=== PATIENT | female | born 1960 | race Caucasian/White ===

== ENCOUNTER 2022-06-08 15:17 | Emergency (ER) | payer OTHER, BC ==
[2022-06-08 15:41] VITALS: BP 152/99
[2022-06-08] MEDS ORDERED: Bacitracin Oint 1 GM U/D Packet TOP ONE (15:53)
[2022-06-08 16:03] VITALS: PULSE 84
== END 2022-06-08 16:10 | disposition home or self-care (01) ==
LOC: JP.ED 15:17
DX: S81.852A Open bite, left lower leg, initial encounter (principal); Z79.82 Long term (current) use of aspirin; W54.0XXA Bitten by dog, initial encounter
CPT/HCPCS: 99283

== ENCOUNTER 2023-01-14 07:01 | Day surgery (SDC) | payer BC, OTHER ==
[2023-01-14] MEDS ORDERED: Lactated Ringers 1,000 ML IV SCH (07:30)
[2023-01-14] MEDS ORDERED: Propofol 200 MG/20 ML SDV ONE (07:40)
[2023-01-14] MEDS ORDERED: Midazolam 1 MG/ML 2 ML SDV ONE (07:41)
[2023-01-14] MEDS ORDERED: fentaNYL 50 MCG/ML SDV ONE (07:41)
[2023-01-14 09:38] VITALS: BP 131/86; PULSE 78
== END 2023-01-14 09:40 | disposition home or self-care (01) ==
LOC: JP.SDS 07:01
PROVIDERS: ATTEND Student in an Organized Health Care Education/Training Program
DX: Z12.11 Encounter for screening for malignant neoplasm of colon (principal); D12.3 Benign neoplasm of transverse colon; K63.5 Polyp of colon; I10 Essential (primary) hypertension; Z79.899 Other long term (current) drug therapy; Z98.890 Other specified postprocedural states
CPT/HCPCS: J2250; J2704; J3010; J7120